=== PATIENT | male | born 1955 | race Caucasian/White ===

== ENCOUNTER 2018-07-05 09:22 | Day surgery (SDC) | payer MEDICARE, OTHER, SELFPAY ==
[2018-07-05 10:00] VITALS: BP 153/90; PULSE 87; RESP 15; TEMP 36.2; O2SAT 98; BMI 29.7
[2018-07-05] MEDS: SODIUM CHLORIDE 0.9% 1,000 ML 200 ML IV (10:00)
[2018-07-05 10:12] VITALS: BMI 29.7
--- NOTE | 2018-07-05 11:49 | PM.HP.1 ---
History of Present Illness Date Patient Seen: 07/05/18 Time Patient Seen: 11:49 Chief complaint: [id number] Narrative: Patient is a gentleman whose last colonoscopy was 10 years ago. He is here for routine exam. Patient History Medical History (Updated 07/05/18 @ 11:51 by Peter Salmeron MD) Essential hypertension with goal blood pressure less than 130/85 (Chronic) Social History household members: spouse Family & Social History Social History: household members spouse Meds Home Medications Medication Instructions Recorded Confirmed Type VITAMIN D (Vitamin D3) 1,000 unit PO QDAY #0 tab 11/21/12 History aspirin 325 mg PO QDAY #0 11/21/12 History atenolol 50 mg PO QDAY #0 11/21/12 History atorvastatin [Lipitor] 20 mg PO HS #0 tab 11/21/12 History ezetimibe [Zetia] 10 mg PO QDAY #0 tab 11/21/12 History lisinopril 10 mg PO QDAY #0 tab 11/21/12 History naproxen sodium [Aleve] 220 mg PO QID #0 11/21/12 History Allergies Allergy/AdvReac Type Severity Reaction Status Date / Time codeine AdvReac Mild Gastrointestinal Verified 07/05/18 09:53 Upset Review of Systems Review of Systems All systems reviewed & are unremarkable except as noted in HPI and below Respiratory Comments: History of asthma Gastrointestinal Comments: Gastroesophageal reflux disease Genitourinary Comments: Urinary frequency and nocturia Neurologic Comments: History of stroke with slight weakness right side Exam Vital Signs (past 8 hours): - 07/05/18 10:00 Temperature 97.2 F L Pulse Rate 87 Respiratory Rate 15 Blood Pressure 153/90 H Pulse Oximetry 98 Oxygen Delivery Method Room Air Narrative Exam Narrative: Co Operative no apparent distress. His eyes nonicteric. Lungs are clear no rales or rhonchi. Heart regular rate and rhythm without murmur gallop. Abdomen is soft protuberant nontender without masses. The patient is alert oriented x3. Assessment & Plan Assessment & Plan narrative: Patient for a screening colonoscopy. I have discussed the procedure and the rationale with the patient including risks of bleeding, perforation which would necessitate a major operation, failure to find remove all lesions and the potential to tattoo. They appeared to understand and wished to proceed.
[2018-07-05] MEDS: ONDANSETRON 4 MG/2 ML INJ IV (11:52)
--- NOTE | 2018-07-05 11:54 | PM.PREOP ---
Pre-operative Note Interval Note History & Physical reviewed/Exam performed by Physician: Yes Changes to H&P: No ASA Class (for procedural sedation): III
[2018-07-05] MEDS: MIDAZOLAM 5 MG/5 ML VIAL IV (12:08)
[2018-07-05] MEDS: fentaNYL 250 MCG/5 ML INJ IV (12:09)
--- NOTE | 2018-07-05 12:19 | PM.OP.ENDO ---
Operative Date/Time/Diagnoses Date of procedure: 07/05/18 Time of procedure: 12:20 Pre-op diagnosis: Screening examination. Last exam 10 years ago. Post-op diagnosis: same (Sigmoid diverticulosis. Very large prostate.) Procedure & Clinicians Study performed: Colonoscopy Same procedure as scheduled: Yes Indications: Screening Surgeon: Peter Salmeron Procedure Notes SCOAP/Timeout: Performed Procedure in detail: The patient was placed in the left lateral decubitus position and underwent IV sedation directed by the surgeon consisting of fentanyl and Versed. Digital exam was remarkable for a very large prostate. Increased sphincter tone.. The scope was inserted and I a retroflexed early in the exam. View was normal. I advanced through the rectum into the sigmoid, descending, transverse, and ascending colon. The patient was noted to have sigmoid diverticulosis. Pressure was applied to make our way into the cecum. The cecum was reached identified by the ileocecal valve and the appendiceal opening. The ileocecal valve was successfully cannulated. The terminal ileum was normal in appearance. The scope was gradually brought out. No Polyps were found. The scope was removed and the patient tolerated the procedure well. prep was very good Scope withdrawal time: 6 minutes Sedation minutes: 21 Findings: diverticulosis (Sigmoid colon) and other findings (Very large prostate) Specimen(s): none sent Complications: none Recommendations: Colonscopy in 10 years
[2018-07-05 12:21] VITALS: BP 96/59; PULSE 69; RESP 16; TEMP 37; O2SAT 97
[2018-07-05 12:47] VITALS: BP 95/63; PULSE 67; RESP 16; TEMP 36.7; O2SAT 93
[2018-07-05 13:15] VITALS: BP 110/71; PULSE 76; RESP 15; TEMP 36.7; O2SAT 93
== END 2018-07-05 13:22 | disposition home or self-care (01) ==
PROVIDERS: PCP Family Medicine; Visit Provider Specialist
PROC: 0DJD8ZZ Inspection of Lower Intestinal Tract, Via Natural or Artificial Opening Endoscopic (ICD-10-PCS; CPT 45378; principal; 2018-07-05 10:45)
DX: Z12.11 Encounter for screening for malignant neoplasm of colon (principal); I10 Essential (primary) hypertension; K57.30 Diverticulosis of large intestine without perforation or abscess without bleeding; N40.0 Benign prostatic hyperplasia without lower urinary tract symptoms
CPT/HCPCS: G0121; 99152; J2250; J2405; J3010

== ENCOUNTER → 2021-11-28 09:17 | Outpatient (CLI) | payer MEDICARE, OTHER, SELFPAY ==
--- NOTE | 2021-11-28 | DI.CT.S_ITS ---
PROCEDURE: CT SINUS SCREEN WO CON INDICATIONS: CHRONIC RHINOSINUSITIS TECHNIQUE: Noncontrast 3.0 mm axial images acquired from the frontal sinuses to the mid-sella, with coronal and sagittal reformats. For radiation dose reduction, the following was used: automated exposure control, adjustment of mA and/or kV according to patient size. COMPARISON: None. FINDINGS: Image quality: Excellent. Maxillary Sinuses: No bony remodeling or destruction. Sinuses are clear. Ethmoid Air Cells: No bony remodeling or destruction. Sinuses are clear. Sphenoid Sinuses: No bony remodeling or destruction. Sinuses are clear. Frontal Sinuses: No bony remodeling or destruction. Sinuses are clear. Ostiomeatal Complexes: Ostiomeatal complexes are patent, yet there constitutionally narrowed, with left-sided Sherine cells. Miscellaneous: Visualized intra-orbital contents are normal. No ronan bullosa or paradoxical turbinate curvature. There is hohw-sj-lamhscae leftward nasal septal deviation, with a leftward directed bony nasal septal spur, as on series 4, image 23. IMPRESSION: No significant active paranasal sinus disease is seen. Incidental note is made of: Constitutionally narrowed ostiomeatal complexes Leftward directed nasal septal deviation, with a left bony nasal septal spur Dictated by: Sukhjinder Love M.D. on 11/28/2021 at 9:13 Approved by: Sukhjinder Love M.D. on 11/28/2021 at 9:15
== END ==
PROVIDERS: PCP Family Medicine; Referring Provider Internal Medicine; Visit Provider Internal Medicine
DX: J32.0 Chronic maxillary sinusitis (principal)
CPT/HCPCS: 70486

== ENCOUNTER 2022-12-05 07:23 | Emergency (ER) | payer MEDICARE, OTHER, SELFPAY ==
[2022-12-05 07:30] VITALS: BP 195/99; PULSE 78; RESP 18; TEMP 36.5; O2SAT 97; BMI 30.2
--- NOTE | 2022-12-05 07:44 | DI.CT.S_ITS ---
PROCEDURE: CT ANGIO HEAD AND NECK INDICATIONS: dizzy hx of cva TECHNIQUE: After the administration of intravenous contrast, 1 mm thick sections acquired from the aortic arch through the [place]. 3-dimensional hnvkwpc-ctqxyloay-vltlstxezq (MIP) and/or volume rendering reformats were acquired of the central intracranial vasculature and neck separately. For radiation dose reduction, the following was used: automated exposure control, adjustment of mA and/or kV according to patient size. COMPARISON: MR, STROKE PROTOCOL (PNL), 12/27/2011, 12:10. CT, ANGIO BRAIN W&W/O CONT., 12/27/2011, 7:14. CT, BRAIN (TPA), 12/27/2011, 5:47. FINDINGS: Image quality: Diagnostic. BRAIN: CSF spaces: Ventricles are normal in size and shape. Basal cisterns are patent. No extra-axial fluid collections. Brain: No significant abnormality of the brain can be seen. Ill-defined low-attenuation is present in the right posterior norris radiata consistent with prior infarction. Skull and face: Calvarium and facial bones appear intact, without suspicious lesions. Orbits appear normal. Sinuses: Sinuses and mastoids are clear. HEAD CT ANGIOGRAPHY: Anterior circulation: Intracranial internal carotid arteries are normal in size and flow. The flow within the paired anterior cerebral arteries is normal and symmetric. The flow within the middle cerebral arteries is normal and symmetric. The anterior communicating artery is seen. No aneurysms are seen. Posterior circulation: Vertebral arteries are codominant. 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 Visualized portions of the vertebral arteries demonstrate normal caliber, and join to form a normal appearing basilar artery. Flow within the posterior cerebral arteries is normal and symmetric. No aneurysms are seen. NECK CT ANGIOGRAPHY: Carotid system: The great vessels demonstrate a conventional anatomy as they arise from the aortic arch. The origins of the common carotid arteries appear patent. The common carotid arteries demonstrate normal caliber and courses. The bifurcation regions are both widely patent. The internal carotid arteries demonstrate normal calibers and courses. Posterior circulation: The origins of the vertebral arteries demonstrate areas of calcification with less than 50% narrowing bilaterally slightly more prominent on the right. The more superior extracranial portions of both vertebral arteries also demonstrate normal courses and calibers. They join to form a normal appearing basilar artery. Soft tissues: Visualized neck soft tissues demonstrate no suspicious abnormalities. Bones: There is mild appearance of asymmetric sclerosis within the right mandibular head. It is noted there is appearance of effusion versus ganglion cyst in 2012. Visualized cervical spine appears normally aligned. IMPRESSION: 1. No acute intracranial process. 2. No areas of hemodynamically significant stenosis, vascular occlusion or aneurysmal dilation within the anterior circulation. 3. Less than 50% narrowing at the origin of the vertebral arteries bilaterally. 4. No areas of hemodynamically significant stenosis, vascular occlusion or aneurysmal dilation within the neck vasculature. 5. Mild asymmetric sclerosis within the right mandibular head. Etiology is uncertain. As clinically indicated, further evaluation with MRI TMJ or potentially bone scan may be obtained. Any quantitative measurements of stenosis were performed using NASCET criteria. Dictated by: Courtney Goznalez M.D. on 12/05/2022 at 8:45 Approved by: Courtney Gonzalez M.D. on 12/05/2022 at 8:57
--- NOTE | 2022-12-05 07:45 | DI.RAD.S_ITS ---
PROCEDURE: XR CHEST 1V INDICATIONS: dizzy TECHNIQUE: One view of the chest was acquired. COMPARISON: CR, CHEST 1VW (PORTABLE), 12/27/2011, 6:12. FINDINGS: Surgical changes and devices: None. Lungs and pleura: Lungs are clear. No pleural effusions or pneumothorax. Mediastinum: Mediastinal contours appear normal. Heart size is at the upper limits of normal in size. Bones and chest wall: No suspicious bony lesions. Overlying soft tissues appear unremarkable. IMPRESSION: Portable chest within normal limits for age. Dictated by: Courtney Gonzalez M.D. on 12/05/2022 at 8:22 Approved by: Courtney Gonzalez M.D. on 12/05/2022 at 8:23
--- NOTE | 2022-12-05 07:49 | ED_ITS ---
HPI - Dizziness General Chief Complaint: Dizziness Stated Complaint: feels faint/dizzy/clammy Time Seen by Provider: 12/05/22 07:31 Source: patient and family Mode of arrival: Ambulatory History of Present Illness HPI Narrative: Patient is a 67-year-old male history of CVA with left-sided weakness which has improved, hypertension hyperlipidemia presenting today with sudden onset dizziness. He reports that he was in his normal state of health last night when he went to bed woke up this morning felt dizzy and clammy was able to go back to sleep for a short time then sat up and felt the room was spinning. Lasting for about 15 minutes. No chest pain no palpitations no shortness of breath nausea blurry vision double vision no worsening weakness. He denies any fever or chills. Feeling a bit better now. He was able to get into the car walk-in to the ER. Still does not feel quite right but improved Related Data Home Medications Medication Instructions Recorded Confirmed VITAMIN D (Vitamin D3) 1,000 unit PO QDAY #0 tabs 11/21/12 aspirin 325 mg tablet,delayed 325 mg PO QDAY ##0 11/21/12 release atenolol 25 mg tablet 50 mg PO QDAY ##0 11/21/12 atorvastatin 20 mg tablet (Lipitor) 20 mg PO HS #0 tabs 11/21/12 ezetimibe 10 mg tablet (Zetia) 10 mg PO QDAY #0 tabs 11/21/12 lisinopril 10 mg tablet 10 mg PO QDAY #0 tabs 11/21/12 naproxen sodium 220 mg tablet 220 mg PO QID ##0 11/21/12 (Aleve) Previous Rx's Medication Instructions Recorded meclizine 25 mg tablet 25 mg PO TID PRN dizziness #20 tabs 12/05/22 Allergies Allergy/AdvReac Type Severity Reaction Status Date / Time codeine AdvReac Mild Gastrointestinal Verified 07/05/18 09:53 Upset Review of Systems Review of Systems ROS Unobtainable: All systems reviewed & are unremarkable except as noted in HPI and below Patient History Medical History Essential hypertension with goal blood pressure less than 130/85 Social History household members: spouse Smoking Status: Never smoker Smoking Status: Never smoker alcohol intake frequency: a few times a week Substance Use Type: does not use Exam Initial Vital Signs Initial Vital Signs: Vital Signs Temperature 97.7 F 12/05/22 07:30 Pulse Rate 78 12/05/22 07:30 Respiratory Rate 18 12/05/22 07:30 Blood Pressure 195/99 H 12/05/22 07:30 Pulse Oximetry 97 12/05/22 07:30 Oxygen Delivery Method Room Air 12/05/22 07:30 GENERAL: Alert 67-year-old male and in no acute distress. HEENT: Head atraumatic,EOMI, pupils reactive, face symmetric, moist mucous membranes CARDIOVASCULAR: Regular rate and rhythm without murmurs, rubs or gallops. RESPIRATORY: Breath sounds equal bilaterally, no wheezes rales or rhonchi. ABDOMEN: Soft, nontender. Normoactive bowel sounds all 4 quadrants. No guarding or rebound. EXTREMITIES: Normal range of motion, no clubbing or edema. Neurovascularly intact NEUROLOGICAL: Alert and oriented x4.Normal gait and speech. Strength equal bilaterally good hhvuot-ys-dmvy bilaterally good qtjw-up-chll lower extremity strength equal no aphasia no dysarthria sensation to soft touch intact SKIN: Warm, dry, no laceration, no petechiae, no rashes or lesions. Scores NIH Stroke Scale Level of Conciousness: Alert, keenly responsive Ask month/age: Answers both questions correctly. Open/close eyes, close hand: Performs both tasks correctly Best gaze horizontal: Normal Visual harris: No visual loss Facial palsy: Normal symetrical movement Left arm drift: No drift for full 10 sec Right arm drift: No drift for full 10 sec Left leg drift: No drift for full 5 sec Right leg drift: No drift for full 5 sec Limb ataxia: Absent Sensory on face/arms/legs: Normal, no sensory loss Best language: No aphasia, normal Dysarthria: Normal Extinction or inattention: No abnormality Total NIH Stroke scale score: 0 Course Orders Ordered: Discontinued Medications Meclizine HCl (Meclizine Hcl 12.5 Mg Tablet) 25 mg PO NOW ONE Stop: 12/05/22 07:45 Last Admin: 12/05/22 07:53 Dose: 25 mg Documented By: ANITA Vital Signs Vital signs: Vital Signs - 8 hr 12/05/22 07:30 12/05/22 08:41 12/05/22 09:00 Temperature 97.7 F Pulse Rate 78 72 Respiratory Rate 18 15 Blood Pressure 195/99 H 153/86 H Pulse Oximetry 97 96 Oxygen Delivery Method Room Air 12/05/22 09:00 12/05/22 09:30 12/05/22 09:30 Temperature Pulse Rate 70 69 Respiratory Rate 11 L 18 Blood Pressure 158/93 H Pulse Oximetry 94 96 Oxygen Delivery Method MDM - Dizziness Lab Data 12/05/22 07:30 12/05/22 07:30 Labs: Lab Results 12/05/22 12/05/22 12/05/22 Range/Units 07:30 07:30 07:30 WBC 7.0 (4.5-11.0) X10^3/uL RBC 5.16 (4.5-5.9) X10^6/uL Hgb 15.4 (13.5-17.5) g/dL Hct 46.1 (41-53) % MCV 89.3 (80-100) fL MCH 29.8 (26-34) PG MCHC 33.4 (30-36) % RDW 14.5 (11.6-14.8) % Plt Count 147 L (150-400) X10^3/uL Neut % (Auto) 50.8 (50-75) % Lymph % (Auto) 30.8 (25-40) % Hale % (Auto) 12.7 (3-14) % Eos % (Auto) 4.3 H (2-4) % Baso % (Auto) 1.4 (0-2) % Neut # (Auto) 3500 (4796-4774) /uL Lymph # (Auto) 2100 (2721-6906) /uL Hale # (Auto) 900 (0-900) /uL Eos # (Auto) 300 (0-450) /uL Baso # (Auto) 100 (0-100) /uL Sodium 138 (137-145) mmol/L Potassium 4.0 (3.4-5.1) mmol/L Chloride 105 (98-107) mmol/L Carbon Dioxide 23 (22-32) mmol/L BUN 23 H (9-20) mg/dL Creatinine 0.87 (0.66-1.25) mg/dL Estimated GFR > 60 (>60) mL/min BUN/Creatinine Ratio 26.4 H (6-22) Glucose 159 H (80-110) mg/dL Calcium 9.5 (8.4-10.2) mg/dL Total Bilirubin 0.6 (0.2-1.3) mg/dL AST 40 (17-59) IU/L ALT 65 H (<50) IU/L Alkaline Phosphatase 76 (38-126) U/L Total Creatine Kinase 134 (55-170) U/L Troponin I < 0.012 (0.01-0.034) ng/mL Total Protein 7.5 (6.3-8.2) g/dL Albumin 4.6 (3.5-5.0) g/dL Globulin 2.9 (1.7-4.1) g/dL Albumin/Globulin Ratio 1.6 (1.0-2.8) Urine Color Urine Appearance Urine pH (4.5-8.0) Ur Specific [place] (1.000-1.035) Urine Protein (Negative) Urine Glucose (UA) (Negative) g/dL Urine Ketones (NEGATIVE) Urine Occult Blood (Negative) Urine Nitrate (Negative) Urine Bilirubin (NEGATIVE) Urine Urobilinogen (0.2) E.U./dL Ur Leukocyte Esterase (NEGATIVE) 12/05/22 Range/Units 09:26 WBC (4.5-11.0) X10^3/uL RBC (4.5-5.9) X10^6/uL Hgb (13.5-17.5) g/dL Hct (41-53) % MCV (80-100) fL MCH (26-34) PG MCHC (30-36) % RDW (11.6-14.8) % Plt Count (150-400) X10^3/uL Neut % (Auto) (50-75) % Lymph % (Auto) (25-40) % Hale % (Auto) (3-14) % Eos % (Auto) (2-4) % Baso % (Auto) (0-2) % Neut # (Auto) (5046-0654) /uL Lymph # (Auto) (2509-5757) /uL Hale # (Auto) (0-900) /uL Eos # (Auto) (0-450) /uL Baso # (Auto) (0-100) /uL Sodium (137-145) mmol/L Potassium (3.4-5.1) mmol/L Chloride (98-107) mmol/L Carbon Dioxide (22-32) mmol/L BUN (9-20) mg/dL Creatinine (0.66-1.25) mg/dL Estimated GFR (>60) mL/min BUN/Creatinine Ratio (6-22) Glucose (80-110) mg/dL Calcium (8.4-10.2) mg/dL Total Bilirubin (0.2-1.3) mg/dL AST (17-59) IU/L ALT (<50) IU/L Alkaline Phosphatase (38-126) U/L Total Creatine Kinase (55-170) U/L Troponin I (0.01-0.034) ng/mL Total Protein (6.3-8.2) g/dL Albumin (3.5-5.0) g/dL Globulin (1.7-4.1) g/dL Albumin/Globulin Ratio (1.0-2.8) Urine Color Yellow Urine Appearance Clear Urine pH 5.0 (4.5-8.0) Ur Specific [place] <=1.005 (1.000-1.035) Urine Protein Negative (Negative) Urine Glucose (UA) Negative (Negative) g/dL Urine Ketones Negative (NEGATIVE) Urine Occult Blood Negative (Negative) Urine Nitrate Negative (Negative) Urine Bilirubin Negative (NEGATIVE) Urine Urobilinogen 0.2 (0.2) E.U./dL Ur Leukocyte Esterase Negative (NEGATIVE) Point of Care Testing Glucose POC 148 Urine Dip Bedside Urine Glucose Negative Bedside Urine Bilirubin - Negative Bedside Urine Ketone - Negative Urine Specific [place] 1.005 Bedside Urine Occult Blood - Negative Bedside Urine pH 6.5 Bedside Urine Protein - Negative Bedside Urine Urobilinogen - Negative Bedside Urine Nitrite - Negative Bedside Urine Leukocytes - Negative Esterase Imaging Data CTA - brain/neck: Radiologist's Impression: PROCEDURE:? CT ANGIO HEAD AND NECK ? INDICATIONS:? dizzy hx of cva ? TECHNIQUE:? After the administration of intravenous contrast, 1 mm thick sections acquired from the aortic arch through the [place].? 3-dimensional vfeivwm-yadnuskxe-fwklidnbus (MIP) and/or volume rendering reformats were acquired of the central intracranial vasculature and neck separately. For radiation dose reduction, the following was used:? automated exposure control, adjustment of mA and/or kV according to patient size.? ? COMPARISON:? MR, STROKE PROTOCOL (PNL), 12/27/2011, 12:10.? CT, ANGIO BRAIN W&W/ O CONT., 12/27/2011, 7:14.? CT, BRAIN (TPA), 12/27/2011, 5:47. ? FINDINGS:? Image quality:? Diagnostic.? ? BRAIN:? CSF spaces:? Ventricles are normal in size and shape.? Basal cisterns are patent.? No extra-axial fluid collections.? ? Brain:? No significant abnormality of the brain can be seen. ? ? Ill-defined low-attenuation is present in the right posterior norris radiata consistent with prior infarction. ? Skull and face:? Calvarium and facial bones appear intact, without suspicious lesions.? Orbits appear normal.? ? Sinuses:? Sinuses and mastoids are clear.? ? HEAD CT ANGIOGRAPHY:? Anterior circulation:? Intracranial internal carotid arteries are normal in size and flow.? The flow within the paired anterior cerebral arteries is normal and symmetric.? The flow within the middle cerebral arteries is normal and symmetric.? The anterior communicating artery is seen.? No aneurysms are seen.? ? Posterior circulation:? Vertebral arteries are codominant.? 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 Visualized portions of the vertebral arteries demonstrate normal caliber, and join to form a normal appearing basilar artery.? Flow within the posterior cerebral arteries is normal and symmetric.? No aneurysms are seen.? ? NECK CT ANGIOGRAPHY:? Carotid system:? The great vessels demonstrate a conventional anatomy as they arise from the aortic arch.? The origins of the common carotid arteries appear patent.? The common carotid arteries demonstrate normal caliber and courses.? The bifurcation regions are both widely patent.? The internal carotid arteries demonstrate normal calibers and courses.? ? Posterior circulation:? The origins of the vertebral arteries demonstrate areas of calcification with less than 50% narrowing bilaterally slightly more prominent on the right.? The more superior extracranial portions of both vertebral arteries also demonstrate normal courses and calibers.? They join to form a normal appearing basilar artery.? ? Soft tissues:? Visualized neck soft tissues demonstrate no suspicious abnormalities.? ? Bones:? There is mild appearance of asymmetric sclerosis within the right mandibular head.? It is noted there is appearance of effusion versus ganglion cyst in 2012.? Visualized cervical spine appears normally aligned.? ? ? IMPRESSION:? ? 1. No acute intracranial process. ? 2. No areas of hemodynamically significant stenosis, vascular occlusion or aneurysmal dilation within the anterior circulation. ? 3. Less than 50% narrowing at the origin of the vertebral arteries bilaterally. ? 4. No areas of hemodynamically significant stenosis, vascular occlusion or aneurysmal dilation within the neck vasculature.? ? 5. Mild asymmetric sclerosis within the right mandibular head.? Etiology is uncertain.? As clinically indicated, further evaluation with MRI TMJ or potentially bone scan may be obtained. ? Any quantitative measurements of stenosis were performed using NASCET criteria.? ? ? Dictated by: Courtney Gonzalez M.D. on 12/05/2022 at 8:45 ?? Chest x-ray: Radiologist's Impression: PROCEDURE:? XR CHEST 1V ? INDICATIONS:? dizzy ? TECHNIQUE:? One view of the chest was acquired.? ? COMPARISON:? CR, CHEST 1VW (PORTABLE), 12/27/2011, 6:12. ? FINDINGS:? ? Surgical changes and devices:? None.? ? Lungs and pleura:? Lungs are clear.? No pleural effusions or pneumothorax.? ? Mediastinum:? Mediastinal contours appear normal.? Heart size is at the upper limits of normal in size. ? Bones and chest wall:? No suspicious bony lesions.? Overlying soft tissues appear unremarkable.? ? ? IMPRESSION:? Portable chest within normal limits for age. ? ? Dictated by: Courtney Gonzalez M.D. on 12/05/2022 at 8:22 ? ? ECG Data Interpretation: Sinus rhythm rate 78 DE interval 166 QRS [address] changes Q-wave noted in lead 3 with T-wave inversion no ST elevation or depression, no priors MDM Narrative Medical decision making narrative: Patient is a 67-year-old male history of hypertension hyperlipidemia CVA presenting today with sudden onset of dizziness clamminess lasting about 15 minutes and now resolved. Symptoms started immediately upon waking seem to be very positional. NIH stroke scales area CT head and neck angio also negative without significant stenosis in the carotids. Blood work has been reviewed and is within normal limits without clinical significance. He is given 25 mg of me clizine. he is overall feeling much better. Initially hypertensive however blood pressure has improved without any sort of intervention. Symptoms seem to be most consistent with a vertigo. He has no nausea vomiting. Tolerating fluids feeling better. More likely vertigo rather than a CVA. Discharge Plan Departure Patient Disposition: Home Clinical Impression: Vertigo Instructions: DI for Vertigo Activity Restrictions/Additional Instructions: *You have been diagnosed with vertigo *What to do: At this time increase fluid as tolerated. Hopefully you start to feel better *Continue to take medications as directed Meclizine 25-50 mg every 8 hours if needed for dizziness--> LAZARO frank *Follow up with your primary care provider in 2-3 days or call [phone] *Return to ER if you should have increasing dizziness numbness tingling weakness or any new, worsening or concerning symptoms Prescriptions: New meclizine 25 mg tablet 25 mg PO TID PRN (Reason: dizziness) Qty: 20 0RF No Action atenolol 25 MG tablet 50 mg PO QDAY Qty: 0 lisinopril 10 MG tablet 10 mg PO QDAY Qty: 0 ezetimibe [Zetia] 10 MG tablet 10 mg PO QDAY Qty: 0 atorvastatin [Lipitor] 20 MG tablet 20 mg PO HS Qty: 0 aspirin 325 MG tablet,delayed release (DR/EC) 325 mg PO QDAY Qty: 0 naproxen sodium [Aleve] 220 MG tablet 220 mg PO QID Qty: 0 VITAMIN D (Vitamin D3) 1,000 unit PO QDAY Qty: 0 Referrals: Uriah Ackerman MD [Primary Care Provider] - Stand Alone Forms: Patient Portal/API
[2022-12-05] MEDS: MECLIZINE HCL 12.5 MG TABLET 25 MG PO (07:53)
[2022-12-05 07:55] LABS: Add Manual Diff / Slide Review NO; Basophils Absolute Auto 100 /uL (0-100); Basophils Percent Auto 1.4 % (0-2); Eosinophils Absolute Auto 300 /uL (0-450); Eosinophils Percent Auto 4.3 % (2-4); Hematocrit 46.1 % (41-53); Hemoglobin 15.4 g/dL (13.5-17.5); Lymphocytes Absolute Auto 2100 /uL (1100-4500); Lymphocytes Percent Auto 30.8 % (25-40); Mean Corpuscular HGB Conc 33.4 % (30-36); Mean Corpuscular Hemoglobin 29.8 PG (26-34); Mean Corpuscular Volume 89.3 fL (80-100); Monocytes Absolute Auto 900 /uL (0-900); Monocytes Percent Auto 12.7 % (3-14); Neutrophils Absolute Auto 3500 /uL (1500-7000); Neutrophils Percent Auto 50.8 % (50-75); Platelet Count 147 X10^3/uL (150-400); Red Blood Cell Count 5.16 X10^6/uL (4.5-5.9); Red Cell Distribution Width 14.5 % (11.6-14.8)
[2022-12-05 08:01] LABS: Creatine Kinase 134 U/L (55-170)
[2022-12-05 08:03] LABS: Alanine Aminotransferase 65 IU/L (<50); Albumin 4.6 g/dL (3.5-5.0); Albumin Globulin Ratio 1.6 (1.0-2.8); Alkaline Phosphatase 76 U/L (38-126); Aspartate Aminotransferase 40 IU/L (17-59); BUN Creatinine Ratio 26.4 (6-22); Bilirubin Total 0.6 mg/dL (0.2-1.3); Blood Urea Nitrogen 23 mg/dL (9-20); Calcium 9.5 mg/dL (8.4-10.2); Carbon Dioxide 23 mmol/L (22-32); Chloride 105 mmol/L (98-107); Estimated Glomerular Filt Rate > 60 mL/min (>60); Globulin 2.9 g/dL (1.7-4.1); Glucose 159 mg/dL (80-110); HEMOLYSIS 19 (0-50); Sodium 138 mmol/L (137-145); Total Protein 7.5 g/dL (6.3-8.2)
[2022-12-05 08:14] LABS: Troponin I < 0.012 ng/mL (0.01-0.034)
--- NOTE | 2022-12-05 08:39 | PC.NURSE ---
Pt stated that he felt better after taking the Meclizine. He also reports that he gets migraines this time of year and in the spring.
[2022-12-05 08:41] VITALS: PULSE 72; RESP 15; O2SAT 96
[2022-12-05 09:00] VITALS: BP 153/86; PULSE 70; RESP 11; O2SAT 94
[2022-12-05 09:30] VITALS: BP 158/93; PULSE 69; RESP 18; O2SAT 96
[2022-12-05 09:47] LABS: Appearance Urine UA CLEAR; Bilirubin Urine UA NEGATIVE (NEGATIVE); Color Urine UA YELLOW; Glucose Urine UA NEGATIVE (Negative); Ketones Urine UA NEGATIVE (NEGATIVE); Leukocyte Esterase Urine UA NEGATIVE (NEGATIVE); Nitrite Urine UA NEGATIVE (Negative); Occult Blood Urine UA NEGATIVE (Negative); Protein Urine UA NEGATIVE (Negative); Specific Gravity Urine UA <=1.005 (1.000-1.035); Urobilinogen Urine UA 0.2 E.U./dL (0.2)
[2022-12-05 10:19] VITALS: BP 158/93; PULSE 68; RESP 16; O2SAT 96
== END 2022-12-05 09:55 | disposition home or self-care (01) ==
PROVIDERS: Emergency Provider Emergency Medicine; PCP Family Medicine
DX: R42 Dizziness and giddiness (principal); Z79.899 Other long term (current) drug therapy
CPT/HCPCS: 36415; 70496; 70498; 71045; 80053; 81003; 82550; 82962; 84484; 85025; 93005; 99284; Q9967

== ENCOUNTER 2024-07-21 11:18 | Emergency (ER) | payer MEDICARE, OTHER, SELFPAY ==
[2024-07-21 11:23] VITALS: BP 166/90; PULSE 85; RESP 17; TEMP 36.6; O2SAT 96; BMI 29.3
[2024-07-21] MEDS: SODIUM CHLORIDE 0.9% 1,000 ML 1000 ML IV (11:49)
[2024-07-21 11:56] LABS: Hematocrit 46.8 % (41-53); Hemoglobin 16.2 g/dL (13.5-17.5); Mean Corpuscular HGB Conc 34.6 % (30-36); Mean Corpuscular Hemoglobin 30.2 PG (26-34); Mean Corpuscular Volume 87.2 fL (80-100); Platelet Count 174 X10^3/uL (150-400); Red Blood Cell Count 5.36 X10^6/uL (4.5-5.9); Red Cell Distribution Width 15.2 % (11.6-14.8)
[2024-07-21 11:57] LABS: Add Manual Diff / Slide Review YES
[2024-07-21 12:04] LABS: Urine Volume 10mL (spun)
[2024-07-21 12:06] LABS: Bacteria Urine None Seen; Culture Indicated Urine Cult Not Indicated; RBC Urine 0-1/HPF (0-5/HPF); Squamous Epithelial Cell Urine None Seen (0-5/HPF); WBC Urine None Seen (0-5/HPF)
[2024-07-21 12:07] LABS: Alanine Aminotransferase 90 IU/L (<50); Albumin 4.1 g/dL (3.5-5.0); Albumin Globulin Ratio 1.2 (1.0-2.8); Alkaline Phosphatase 122 U/L (38-126); Aspartate Aminotransferase 80 IU/L (17-59); BUN Creatinine Ratio 22.2 (6-22); Bilirubin Total 0.8 mg/dL (0.2-1.3); Blood Urea Nitrogen 24 mg/dL (9-20); Calcium 9.5 mg/dL (8.4-10.2); Carbon Dioxide 19 mmol/L (22-32); Chloride 101 mmol/L (98-107); Estimated Glomerular Filt Rate > 60 mL/min (>60); Globulin 3.3 g/dL (1.7-4.1); Glucose 138 mg/dL (70-99); HEMOLYSIS < 15 (0-50); Lipase 81 U/L (23-300); Neutrophils Absolute Manual 2400 /uL (3000-5900); Potassium 3.9 mmol/L (3.4-5.1); Sodium 133 mmol/L (137-145); Total Cells Counted 100; Total Protein 7.4 g/dL (6.3-8.2)
[2024-07-21 12:08] LABS: Anisocytosis 1+
--- NOTE | 2024-07-21 12:12 | EKG_ITS ---
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
--- NOTE | 2024-07-21 12:42 | ED.ABDPAIN ---
HPI - Abdominal Pain <Kylie Meraz PA-C - Last Filed: 07/21/24 15:48> General Chief Complaint: Abdominal Pain Stated Complaint: Stomach bug Time Seen by Provider: 07/21/24 11:39 Source: patient Mode of arrival: Ambulatory History of Present Illness HPI narrative: 69-year-old male with past medical history CVA, hypertension, hyperlipidemia presents to the ED with 5 days of watery diarrhea. Patient states that he had dinner at a local restaurant 6 days ago, and started experiencing abdominal cramping and diarrhea the next morning. Patient also endorses all-over myalgias, sore throat. Patient denies fever, chills, chest pain, shortness of breath, nausea, vomiting, dysuria, lightheadedness, dizziness, syncope. Related Data Home Medications Medication Instructions Recorded Confirmed VITAMIN D (Vitamin D3) 1,000 unit PO QDAY #0 tabs 11/21/12 aspirin 325 mg tablet,delayed 325 mg PO QDAY ##0 11/21/12 release atenolol 25 mg tablet 50 mg PO QDAY ##0 11/21/12 atorvastatin 20 mg tablet (Lipitor) 20 mg PO HS #0 tabs 11/21/12 ezetimibe 10 mg tablet (Zetia) 10 mg PO QDAY #0 tabs 11/21/12 lisinopril 10 mg tablet 10 mg PO QDAY #0 tabs 11/21/12 naproxen sodium 220 mg tablet 220 mg PO QID ##0 11/21/12 (Aleve) Previous Rx's Medication Instructions Recorded meclizine 25 mg tablet 25 mg PO TID PRN dizziness #20 tabs 12/05/22 azithromycin 500 mg tablet See Rx Instructions PO .COMPLEX #3 07/21/24 tabs Allergies Allergy/AdvReac Type Severity Reaction Status Date / Time codeine AdvReac Mild Gastrointestinal Verified 07/21/24 11:23 Upset Review of Systems <Kylie Meraz PA-C - Last Filed: 07/21/24 15:48> Constitutional Constitutional: Reports body ache(s), Denies chills, Denies fatigue, Denies fever(s), Denies frequent falls, Denies lethargy and Denies weakness Eyes Eyes: Denies change in vision, Denies eye discharge, Denies irritation and Denies loss of vision ENT Ears, Nose, Mouth, and Throat: Denies change in voice, Denies dizziness, Denies neck pain, Reports sore throat and Denies throat swelling Cardiovascular Cardiovascular: Denies chest pain, Denies irregular heart rhythm, Denies lightheadedness, Denies palpitations, Denies dyspnea, Denies dyspnea on exertion and Denies orthopnea Respiratory Respiratory: Denies cough, Denies dyspnea, Denies dyspnea on exertion and Denies wheezing Gastrointestinal Gastrointestinal: Denies abdominal pain, Denies hematochezia, Denies change in bowel habits, Reports cramping, Reports diarrhea, Denies nausea and Denies vomiting Musculoskeletal Musculoskeletal: Denies neck pain and Denies numbness Integumentary/Breasts Skin/Breast: Denies pruritus, Denies erythema, Denies rash and Denies wounds Neurologic Neurologic: Denies behavioral changes, Denies confusion, Denies dizziness, Denies frequent falls, Denies loss of vision, Denies numbness and Denies weakness Psychiatric Psychiatric: Denies anxiety, Denies behavioral changes, Denies confusion, Denies depression, Denies homicidal ideation and Denies suicidal ideation Endocrine Endocrine: Denies fatigue, Denies flushing and Denies palpitations Hematologic/Lymphatic Hematologic/Lymphatic: Denies easy bruising Allergic/Immunologic Allergic/Immunologic: Denies urticaria, Denies throat swelling and Denies wheezing Patient History <Kylie Meraz PA-C - Last Filed: 07/21/24 15:48> Medical History Essential hypertension with goal blood pressure less than 130/85 Social History household members: spouse Smoking Status: Never smoker Smoking Status: Never smoker alcohol intake frequency: a few times a week Exam <Kylie Meraz PA-C - Last Filed: 07/21/24 15:48> Narrative Exam Narrative: Const General:?cooperative, healthy appearing and comfortable [facility] Head:?normal to inspection Ears:?hearing grossly normal bilaterally Nose:?external nose normal Face and sinus:?normal facial exam and sinuses nontender Mouth:?oral mucosae normal Throat:?posterior oropharynx normal Eyes General:?appearance normal, both eyes and all related structures Neck Neck:?normal visual inspection and no lymphadenopathy noted Resp Effort & Inspection:?normal respiratory effort Auscultation:?clear to auscultation bilaterally Cardio Rate:?regular rate Rhythm:?regular rhythm GI Abdomen is soft, nondistended, nontender to palpation. Neuro General:?patient alert, patient awake and patient oriented x3 Initial Vital Signs Initial Vital Signs: Vital Signs Temperature 97.8 F 07/21/24 11:23 Pulse Rate 85 07/21/24 11:23 Respiratory Rate 17 07/21/24 11:23 Blood Pressure 166/90 H 07/21/24 11:23 Pulse Oximetry 96 07/21/24 11:23 Oxygen Delivery Method Room Air 07/21/24 11:23 <Mayra Mello DO - Last Filed: 07/25/24 07:51> Initial Vital Signs Initial Vital Signs: Vital Signs Temperature 97.8 F 07/21/24 11:23 Pulse Rate 85 07/21/24 11:23 Respiratory Rate 17 07/21/24 11:23 Blood Pressure 166/90 H 07/21/24 11:23 Pulse Oximetry 96 07/21/24 11:23 Oxygen Delivery Method Room Air 07/21/24 11:23 Course <Kylie Meraz PA-C - Last Filed: 07/21/24 15:48> Orders Ordered: Discontinued Medications Sodium Chloride (Normal Saline 0.9%) 1,000 mls @ 1,000 mls/hr IV BOLUS ONE Stop: 07/21/24 12:46 Last Infusion: 07/21/24 12:51 Dose: Infused Documented By: Admin: 07/21/24 11:49 Dose: 1,000 mls/hr Documented By: KEILY Ondansetron HCl (Ondansetron 4 Mg/2 Ml Inj) 4 mg IV NOW PRN PRN Reason: Nausea And Vomiting Ondansetron HCl (Ondansetron 4 Mg Odt) 4 mg PO NOW PRN PRN Reason: Nausea And Vomiting Vital Signs Vital signs: Vital Signs - 8 hr 07/21/24 11:23 07/21/24 12:48 07/21/24 12:49 Temperature 97.8 F Pulse Rate 85 82 Respiratory Rate 17 19 Blood Pressure 166/90 H 172/93 H Pulse Oximetry 96 97 Oxygen Delivery Method Room Air 07/21/24 12:49 07/21/24 13:00 07/21/24 13:00 Temperature Pulse Rate 77 84 Respiratory Rate 18 17 Blood Pressure 151/85 H Pulse Oximetry 98 96 Oxygen Delivery Method <Mayra Mello DO - Last Filed: 07/25/24 07:51> Orders Ordered: Discontinued Medications Sodium Chloride (Normal Saline 0.9%) 1,000 mls @ 1,000 mls/hr IV BOLUS ONE Stop: 07/21/24 12:46 Last Infusion: 07/21/24 12:51 Dose: Infused Documented By: Admin: 07/21/24 11:49 Dose: 1,000 mls/hr Documented By: KEILY Ondansetron HCl (Ondansetron 4 Mg/2 Ml Inj) 4 mg IV NOW PRN PRN Reason: Nausea And Vomiting Ondansetron HCl (Ondansetron 4 Mg Odt) 4 mg PO NOW PRN PRN Reason: Nausea And Vomiting Vital Signs Vital signs: Vital Signs - 8 hr 07/21/24 11:23 07/21/24 12:48 07/21/24 12:49 Temperature 97.8 F Pulse Rate 85 82 Respiratory Rate 17 19 Blood Pressure 166/90 H 172/93 H Pulse Oximetry 96 97 Oxygen Delivery Method Room Air 07/21/24 12:49 07/21/24 13:00 07/21/24 13:00 Temperature Pulse Rate 77 84 Respiratory Rate 18 17 Blood Pressure 151/85 H Pulse Oximetry 98 96 Oxygen Delivery Method MDM - Abdominal Pain <Kylie Meraz PA-C - Last Filed: 07/21/24 15:48> Lab Data 07/21/24 11:44 07/21/24 11:44 Labs: Lab Results 07/21/24 07/21/24 07/21/24 Range/Units 11:35 11:44 11:55 WBC 5.0 (4.5-11.0) X10^3/uL RBC 5.36 (4.5-5.9) X10^6/uL Hgb 16.2 (13.5-17.5) g/dL Hct 46.8 (41-53) % MCV 87.2 (80-100) fL MCH 30.2 (26-34) PG MCHC 34.6 (30-36) % RDW 15.2 H (11.6-14.8) % Plt Count 174 (150-400) X10^3/uL Neut % (Auto) Not Reportable Lymph % (Auto) Not Reportable [place] % (Auto) Not Reportable Eos % (Auto) Not Reportable Baso % (Auto) Not Reportable Lymph # (Auto) Not Reportable [place] # (Auto) Not Reportable Baso # (Auto) Not Reportable Total Counted 100 Seg Neutrophils % 40.0 (38-70) % Band Neutrophils % 8.0 H (3-7) % Lymphocytes % (Manual) 20.0 L (25-45) % Monocytes % (Manual) 31.0 H (2-11) % Eosinophils % (Manual) 1.0 L (2-4) % Neutrophils # (Manual) 2400 L (7556-5677) /uL RBC Morphology See below Anisocytosis 1+ H Sodium 133 L (137-145) mmol/L Potassium 3.9 (3.4-5.1) mmol/L Chloride 101 (98-107) mmol/L Carbon Dioxide 19 L (22-32) mmol/L BUN 24 H (9-20) mg/dL Creatinine 1.08 (0.66-1.25) mg/dL Estimated GFR > 60 (>60) mL/min BUN/Creatinine Ratio 22.2 H (6-22) Glucose 138 H (70-99) mg/dL Calcium 9.5 (8.4-10.2) mg/dL Total Bilirubin 0.8 (0.2-1.3) mg/dL AST 80 H (17-59) IU/L ALT 90 H (<50) IU/L Alkaline Phosphatase 122 (38-126) U/L Total Protein 7.4 (6.3-8.2) g/dL Albumin 4.1 (3.5-5.0) g/dL Globulin 3.3 (1.7-4.1) g/dL Albumin/Globulin Ratio 1.2 (1.0-2.8) Lipase 81 (23-300) U/L Urine RBC 0-1/hpf (0-5/HPF) Urine WBC None seen (0-5/HPF) Ur Squamous Epith Cells None seen (0-5/HPF) Urine Bacteria None seen (None) Ur Culture Indicated? Cult not indicated Vol Urine Centrifuged 10ml (spun) Stl C. cayetanensis PCR Not detected (Not Detect) Stool Rotavirus (PCR) Not detected (Not Detect) Stool Adenovirus (PCR) Not detected (Not Detect) Stool Astrovirus (PCR) Not detected (Not Detect) Stool Cryptosporidium PCR Not detected (Not Detect) Stl E.coli Shiga Tox PCR Not detected (Not Detect) St Sh/Enteroin Ecoli PCR Not detected (Not Detect) Stl Enterotoxigenic E PCR Not detected (Not Detect) Stool EPEC (PCR) Not detected (Not Detect) Stl E. histolytica PCR Not detected (Not Detect) Stool Giardia Lamblia PCR Not detected (Not Detect) Stool Sapovirus (PCR) Not detected (Not Detect) Stl P. shigelloides PCR Not detected (Not Detect) St Y.enterocolitica PCR Not detected (Not Detect) Stool Vibrio (PCR) Not detected (Not Detect) Stl Vibrio cholerae PCR Not detected (Not Detect) Stl Enteroaggr Ecoli PCR Not detected (Not Detect) Stl Norovirus GI/GII PCR Not detected (Not Detect) Campylobacter (PCR) Detected (Not Detect) C. difficile Tox (PCR) Not detected (Not Detect) Salmonella (PCR) Not detected (Not Detect) Point of care testing: Urine Dip Bedside Urine Glucose Negative Bedside Urine Bilirubin - Negative Bedside Urine Ketone +/- 5 Urine Specific [place] 1.02 Bedside Urine Occult Blood + Bedside Urine pH 6.0 Bedside Urine Protein ++ 100 Bedside Urine Urobilinogen - Negative Bedside Urine Nitrite - Negative Bedside Urine Leukocytes - Negative Esterase MDM Narrative Medical decision making narrative: 69-year-old male with past medical history CVA, hypertension, hyperlipidemia presents to the ED with 5 days of watery diarrhea. Concern for viral gastroenteritis versus bacterial gastroenteritis versus dehydration versus URI versus other. Will obtain labs, GI panel, urinalysis. Will give IV fluids. GI panel is positive for Campylobacter. Mild elevation of transaminases with AST at 80, ALT at 90. All other labs within normal limits. UA negative for UTI. Patient's symptoms improved with IV fluids. Patient prescribed antibiotics. Recommend good hydration, BRAT diet. Recommend follow-up with PCP. ED return precautions were discussed with patient. He verbalized understanding. Medical records reviewed: Yes <Mayra Mello DO - Last Filed: 07/25/24 07:51> Lab Data Labs: Lab Results 07/21/24 07/21/24 07/21/24 Range/Units 11:35 11:44 11:55 WBC 5.0 (4.5-11.0) X10^3/uL RBC 5.36 (4.5-5.9) X10^6/uL Hgb 16.2 (13.5-17.5) g/dL Hct 46.8 (41-53) % MCV 87.2 (80-100) fL MCH 30.2 (26-34) PG MCHC 34.6 (30-36) % RDW 15.2 H (11.6-14.8) % Plt Count 174 (150-400) X10^3/uL Neut % (Auto) Not Reportable Lymph % (Auto) Not Reportable [place] % (Auto) Not Reportable Eos % (Auto) Not Reportable Baso % (Auto) Not Reportable Lymph # (Auto) Not Reportable [place] # (Auto) Not Reportable Baso # (Auto) Not Reportable Total Counted 100 Seg Neutrophils % 40.0 (38-70) % Band Neutrophils % 8.0 H (3-7) % Lymphocytes % (Manual) 20.0 L (25-45) % Monocytes % (Manual) 31.0 H (2-11) % Eosinophils % (Manual) 1.0 L (2-4) % Neutrophils # (Manual) 2400 L (7414-0206) /uL RBC Morphology See below Anisocytosis 1+ H Sodium 133 L (137-145) mmol/L Potassium 3.9 (3.4-5.1) mmol/L Chloride 101 (98-107) mmol/L Carbon Dioxide 19 L (22-32) mmol/L BUN 24 H (9-20) mg/dL Creatinine 1.08 (0.66-1.25) mg/dL Estimated GFR > 60 (>60) mL/min BUN/Creatinine Ratio 22.2 H (6-22) Glucose 138 H (70-99) mg/dL Calcium 9.5 (8.4-10.2) mg/dL Total Bilirubin 0.8 (0.2-1.3) mg/dL AST 80 H (17-59) IU/L ALT 90 H (<50) IU/L Alkaline Phosphatase 122 (38-126) U/L Total Protein 7.4 (6.3-8.2) g/dL Albumin 4.1 (3.5-5.0) g/dL Globulin 3.3 (1.7-4.1) g/dL Albumin/Globulin Ratio 1.2 (1.0-2.8) Lipase 81 (23-300) U/L Urine RBC 0-1/hpf (0-5/HPF) Urine WBC None seen (0-5/HPF) Ur Squamous Epith Cells None seen (0-5/HPF) Urine Bacteria None seen (None) Ur Culture Indicated? Cult not indicated Vol Urine Centrifuged 10ml (spun) Stl C. cayetanensis PCR Not detected (Not Detect) Stool Rotavirus (PCR) Not detected (Not Detect) Stool Adenovirus (PCR) Not detected (Not Detect) Stool Astrovirus (PCR) Not detected (Not Detect) Stool Cryptosporidium PCR Not detected (Not Detect) Stl E.coli Shiga Tox PCR Not detected (Not Detect) St Sh/Enteroin Ecoli PCR Not detected (Not Detect) Stl Enterotoxigenic E PCR Not detected (Not Detect) Stool EPEC (PCR) Not detected (Not Detect) Stl E. histolytica PCR Not detected (Not Detect) Stool Giardia Lamblia PCR Not detected (Not Detect) Stool Sapovirus (PCR) Not detected (Not Detect) Stl P. shigelloides PCR Not detected (Not Detect) St Y.enterocolitica PCR Not detected (Not Detect) Stool Vibrio (PCR) Not detected (Not Detect) Stl Vibrio cholerae PCR Not detected (Not Detect) Stl Enteroaggr Ecoli PCR Not detected (Not Detect) Stl Norovirus GI/GII PCR Not detected (Not Detect) Campylobacter (PCR) Detected (Not Detect) C. difficile Tox (PCR) Not detected (Not Detect) Salmonella (PCR) Not detected (Not Detect) Point of care testing: Urine Dip Bedside Urine Glucose Negative Bedside Urine Bilirubin - Negative Bedside Urine Ketone +/- 5 Urine Specific [place] 1.02 Bedside Urine Occult Blood + Bedside Urine pH 6.0 Bedside Urine Protein ++ 100 Bedside Urine Urobilinogen - Negative Bedside Urine Nitrite - Negative Bedside Urine Leukocytes - Negative Esterase Discharge Plan Departure Patient Disposition: Home Clinical Impression: Campylobacter diarrhea Instructions: DI for Bacterial Gastroenteritis -- Adult Activity Restrictions/Additional Instructions: You were evaluated in the ED today for diarrhea. The stool sample you provided was positive for a bacterial infection, namely Campylobacter jejuni. You are being prescribed antibiotics to take for the next 3 days. Please continue to hydrate well, you may supplement with sugar free Gatorade. It is recommended that you follow a BRAT diet consisting of bananas, rice, apples, toast until your diarrhea resolves. Please avoid fatty foods, spicy foods, dairy. You may eat low sugar yogurt. Please follow-up with your PCP as soon as possible. Return to the ED if you have worsening symptoms. Prescriptions: New azithromycin 500 mg tablet See Rx Instructions .ROUTE .COMPLEX Qty: 3 0RF Rx Instructions: For 500 mg dose pack: take 500 mg once daily for 3 days No Action atenolol 25 MG tablet 50 mg PO QDAY Qty: 0 lisinopril 10 MG tablet 10 mg PO QDAY Qty: 0 ezetimibe [Zetia] 10 MG tablet 10 mg PO QDAY Qty: 0 atorvastatin [Lipitor] 20 MG tablet 20 mg PO HS Qty: 0 aspirin 325 MG tablet,delayed release (DR/EC) 325 mg PO QDAY Qty: 0 naproxen sodium [Aleve] 220 MG tablet 220 mg PO QID Qty: 0 VITAMIN D (Vitamin D3) 1,000 unit PO QDAY Qty: 0 meclizine 25 mg tablet 25 mg PO TID PRN (Reason: dizziness) Qty: 20 0RF Referrals: Uriah Ackerman MD [Primary Care Provider] - Stand Alone Forms: Patient Portal/API/Survey ED Sign-out <Mayra Mello DO - Last Filed: 07/25/24 07:51> Cosign ED Attending Jimmie Attestation: I was available for consultation.
[2024-07-21 12:48] VITALS: PULSE 82; RESP 19; O2SAT 97
[2024-07-21 12:49] VITALS: BP 172/93; PULSE 77; RESP 18; O2SAT 98
[2024-07-21 12:58] LABS: Adenovirus F 40/41 Not Detected (Not Detect); Astrovirus Not Detected (Not Detect); Clostridium difficile toxin AB Not Detected (Not Detect); Cryptosporidium Not Detected (Not Detect); Cyclospora cayetanensis Not Detected (Not Detect); Entamoeba histolytica Not Detected (Not Detect); Enteroaggregative E.coli Not Detected (Not Detect); Enteropathogenic E.coli Not Detected (Not Detect); Enterotoxigenic E.coli It/st Not Detected (Not Detect); Giardia lamblia Not Detected (Not Detect); Norovirus GI/GII Not Detected (Not Detect); Plesiomonsa shigelloides Not Detected (Not Detect); Rotavirus A Not Detected (Not Detect); Salmonella Not Detected (Not Detect); Sapovirus Not Detected (Not Detect); Shiga-like toxin-prod E.coli Not Detected (Not Detect); Shigella/Enteroinvasive E.coli Not Detected (Not Detect); Vibrio Not Detected (Not Detect); Vibrio cholerae Not Detected (Not Detect); Yersinia enterocolitica Not Detected (Not Detect)
[2024-07-21 13:00] VITALS: BP 151/85; PULSE 84; RESP 17; O2SAT 96
[2024-07-21 13:01] LABS: Campylobacter Detected (Not Detect)
== END 2024-07-21 13:56 | disposition home or self-care (01) ==
PROVIDERS: Emergency Medicine; Emergency Provider Student in an Organized Health Care Education/Training Program; PCP Family Medicine
DX: A04.5 Campylobacter enteritis (principal)
CPT/HCPCS: 36415; 80053; 81003; 81015; 83690; 85007; 85025; 87507; 93005; 93010; 96360; 99284